=== PATIENT | female | born 1980 | race Caucasian/White ===

== ENCOUNTER → 2017-11-02 | Day surgery (SDC) | payer OTHER ==
[~2017-11-02] VITALS: Ht 170.2 cm; Wt 95.0 kg
[~2017-11-02] MED LIST: ACETAMINOPHEN 325 MG TABLET PO PRN; ALBU8.5H5 INH; ALLERGY PILL PO; AMOX1TAB64 PO; AMOX875T PO; BIRTH CONTROL PILL PO; BIRTH CONTROL PO; CIPR500T87 PO; DEXAMETHASONE 4 MG/ML, 1ML ONE; DICY20TA3 PO; DULO60CA7 PO; EPINEPHRINE TOPICAL SOLN 1 MG/ML, 30ML ONE; FENTANYL PF 100 MCG/2ML IV PRN; FENTANYL PF 250 MCG/5ML ONE; HYDROcodone/APAP 7.5-325MG/15ML UDC PO PRN; HYDROmorphone 1 MG/ML, 1ML IV PRN; INHALER INH; KETAMINE 10 MG/ML, 20ML ONE; LACTATED RINGERS 1,000 ML IV SCH; LEVO1TAB5 PO; LIDOCAINE-MPF 2% ,5ML ONE; LORazepam 2 MG/ML, 1ML IVPush PRN; MEPERIDINE/PF 25MG/0.5ML IVPush PRN; MEPERIDINE/PF 50 MG/ML ONE; METR500T PO; MIDAZOLAM 1 MG/ML, 2ML ONE; ONDANSETRON 2MG/ML, 2ML IVPush PRN; ONDANSETRON 2MG/ML, 2ML ONE; OXYC-302 PO; OXYcodone 5 MG/5 ML ORAL.SOL UDC PO PRN; PLEASE ENTER HEIGHT AND WEIGHT MC SCH; PRED20TA PO; PROMETHAZINE 25 MG/ML, 1ML IV PRN; PROPOFOL 10 MG/ML, 20ML ONE; PROPOFOL 100 ML ONE; RIVA20TA PO; VANC125C11 PO
[2017-11-02 11:14] VITALS: BP 112/83
[2017-11-02 11:34] LABS: HCG UR SG 1.016 (1.003-1.030)
[2017-11-02] MEDS: TRIAMCINOLONE ACETONIDE 40 MG/ML, 1ML ONE ×2 (13:33→13:36)
== END | disposition home or self-care (01) ==
LOC: OUT 10:36
PROVIDERS: ATTEND Otolaryngology
DX: J39.8 Other specified diseases of upper respiratory tract (principal); Z86.718 Personal history of other venous thrombosis and embolism; Z79.02 Long term (current) use of antithrombotics/antiplatelets
CPT/HCPCS: 31529; 81025; C1726; J1100; J2175; J2250; J2405; J2704; J3010; J3301; J3490

== ENCOUNTER → 2018-05-19 | Outpatient (CLI) | payer OTHER ==
[~2018-05-19] MED LIST changes: -ACETAMINOPHEN 325 MG TABLET PO PRN; -DEXAMETHASONE 4 MG/ML, 1ML ONE; +DULO30CA2 PO; -EPINEPHRINE TOPICAL SOLN 1 MG/ML, 30ML ONE; -FENTANYL PF 100 MCG/2ML IV PRN; -FENTANYL PF 250 MCG/5ML ONE; -HYDROcodone/APAP 7.5-325MG/15ML UDC PO PRN; -HYDROmorphone 1 MG/ML, 1ML IV PRN; -KETAMINE 10 MG/ML, 20ML ONE; -LACTATED RINGERS 1,000 ML IV SCH; -LIDOCAINE-MPF 2% ,5ML ONE; -LORazepam 2 MG/ML, 1ML IVPush PRN; -MEPERIDINE/PF 25MG/0.5ML IVPush PRN; -MEPERIDINE/PF 50 MG/ML ONE; -MIDAZOLAM 1 MG/ML, 2ML ONE; -ONDANSETRON 2MG/ML, 2ML IVPush PRN; -ONDANSETRON 2MG/ML, 2ML ONE; -OXYcodone 5 MG/5 ML ORAL.SOL UDC PO PRN; -PLEASE ENTER HEIGHT AND WEIGHT MC SCH; -PROMETHAZINE 25 MG/ML, 1ML IV PRN; -PROPOFOL 10 MG/ML, 20ML ONE; -PROPOFOL 100 ML ONE
== END ==
LOC: STAR 08:29
PROVIDERS: ATTEND Otolaryngology
DX: Z02.9 Encounter for administrative examinations, unspecified (principal)

== ENCOUNTER 2018-05-24 11:40 | Inpatient (IN) | payer OTHER ==
[2018-05-19 08:50] VITALS: BP 120/88
[~2018-05-24] VITALS: Ht 170.2 cm; Wt 95.0 kg
[2018-05-24] MEDS ORDERED: LACTATED RINGERS 1,000 ML IV SCH (12:11)
[2018-05-24] MEDS ORDERED: ACETAMINOPHEN 500 MG TABLET PO ONE (12:30)
[2018-05-24] MEDS ORDERED: GABAPENTIN 300 MG CAPSULE PO ONE (12:30)
[2018-05-24] MEDS ORDERED: GABAPENTIN 300 MG CAPSULE ONE (12:43)
[2018-05-24] MEDS ORDERED: ACETAMINOPHEN 500 MG TABLET ONE (12:44)
[2018-05-24 12:51] LABS: HCG UR SG 1.027 (1.003-1.030)
[2018-05-24] MEDS ORDERED: EPINEPHRINE 1 MG/ML, 1ML ONE (13:01)
[2018-05-24] MEDS ORDERED: LIDOCAINE/PF 0.5% ,50ML ONE (13:01)
[2018-05-24] MEDS ORDERED: MICROFIBRILLAR COLLAGEN 70X35X1 DRESSING ONE (13:01)
[2018-05-24] MEDS ORDERED: EPINEPHRINE TOPICAL SOLN 1 MG/ML, 30ML ONE (13:09)
[2018-05-24] MEDS ORDERED: THROMBIN 5,000 UNIT VIAL TP ONE (13:09)
[2018-05-24] MEDS ORDERED: MIDAZOLAM 1 MG/ML, 2ML ONE (13:43)
[2018-05-24] MEDS ORDERED: PROPOFOL 50 ML ONE (13:45)
[2018-05-24] MEDS ORDERED: FENTANYL PF 250 MCG/5ML ONE ×2 (13:45→14:44)
[2018-05-24] MEDS ORDERED: ROCURONIUM 10 MG/ML,10ML ONE (14:18)
[2018-05-24] MEDS ORDERED: SUCCINYLCHOLINE 20 MG/ML, 10ML ONE (14:18)
[2018-05-24] MEDS ORDERED: CEFAZOLIN 1,000 MG ONE (14:18)
[2018-05-24] MEDS ORDERED: ONDANSETRON 2MG/ML, 2ML ONE (14:42)
[2018-05-24] MEDS ORDERED: PROPOFOL 10 MG/ML, 20ML ONE ×2 (14:42)
[2018-05-24] MEDS ORDERED: DEXAMETHASONE 4 MG/ML, 1ML ONE ×2 (14:42)
[2018-05-24] MEDS ORDERED: OXYcodone 5 MG/5 ML ORAL.SOL UDC PO PRN (17:00)
[2018-05-24] MEDS ORDERED: ONDANSETRON ODT 8 MG PO PRN (17:00)
[2018-05-24] MEDS ORDERED: EPHEDRINE 50 MG/ML, 1ML IM PRN (17:00)
[2018-05-24] MEDS ORDERED: PROCHLORPERAZINE 5 MG/ML, 2ML IV PRN (17:00)
[2018-05-24] MEDS ORDERED: PROMETHAZINE 25 MG/ML, 1ML IV PRN (17:00)
[2018-05-24] MEDS ORDERED: PROMETHAZINE 12.5 MG SUPP PR PRN (17:00)
[2018-05-24] MEDS ORDERED: DIPHENHYDRAMINE 50 MG/ML, 1ML IVPush PRN (17:00)
[2018-05-24] MEDS ORDERED: FENTANYL PF 100 MCG/2ML IV PRN (17:00)
[2018-05-24] MEDS ORDERED: MIDAZOLAM 1 MG/ML, 2ML IV PRN (17:00)
[2018-05-24] MEDS ORDERED: ACETAMINOPHEN 325 MG TABLET PO PRN (17:00)
[2018-05-24] MEDS ORDERED: MORPHINE SULFATE 4 MG/ML, 1ML IVPush PRN ×2 (17:00→19:00)
[2018-05-24] MEDS ORDERED: MEPERIDINE/PF 25MG/0.5ML IVPush PRN (17:00)
[2018-05-24] MEDS ORDERED: MORPHINE SULFATE 4 MG/ML, 1ML ONE (17:21)
[2018-05-24] MEDS ORDERED: FENTANYL PF 100 MCG/2ML ONE (17:36)
[2018-05-24] MEDS ORDERED: OXYcodone 5 MG/5 ML ORAL.SOL UDC ONE (17:36)
[2018-05-24 18:20] VITALS: BP 130/70
[2018-05-24] MEDS ORDERED: ONDANSETRON 2MG/ML, 2ML IVPush PRN (19:00)
[2018-05-24] MEDS ORDERED: ACETAMINOPHEN 500 MG TABLET PO PRN (19:00)
[2018-05-24] MEDS: LACTATED RINGERS 1,000 ML IV SCH (22:01)
[2018-05-24] MEDS: OXYcodone IR 5MG TABLET PO PRN (23:16)
[2018-05-24 23:32] VITALS: BP 137/80
[2018-05-25 03:06] VITALS: BP 121/73
[2018-05-25] MEDS: OXYcodone IR 5MG TABLET PO PRN (03:35)
[2018-05-25 08:14] VITALS: BP 122/72
[2018-05-25] MEDS: LACTATED RINGERS 1,000 ML IV SCH (08:57)
[2018-05-25] MEDS: CEFAZOLIN PMX 2GM/50ML 50 ML IVPB SCH ×2 (08:57)
[2018-05-25] MEDS ORDERED: OXYC-302 PO (12:03)
== END 2018-05-25 12:50 | disposition home or self-care (01) | DRG 627 ==
LOC: OUT 11:40 → 4NOR 18:13 → OUT 18:17 → DCLOUNGE 05-25 12:20
PROVIDERS: ADMIT Otolaryngology; ATTEND Otolaryngology
PROC: 4A11X4G Monitoring of Peripheral Nervous Electrical Activity, Intraoperative, External Approach (ICD-10-PCS; 2018-05-24)
PROC: 0GTH0ZZ Resection of Right Thyroid Gland Lobe, Open Approach (ICD-10-PCS; principal; 2018-05-24 13:30)
PROC: 0GBJ0ZZ Excision of Thyroid Gland Isthmus, Open Approach (ICD-10-PCS; 2018-05-24 13:30)
PROC: 0BJ18ZZ Inspection of Trachea, Via Natural or Artificial Opening Endoscopic (ICD-10-PCS; 2018-05-24 13:30)
DX: E04.1 Nontoxic single thyroid nodule (principal); J39.8 Other specified diseases of upper respiratory tract
CPT/HCPCS: 81025; 88307; 88331; C1726; C1729; J0171; J0690; J1100; J2001; J2250; J2405; J2704; J3010; C1760; J0330; J7120

== ENCOUNTER → 2018-08-22 | Outpatient (CLI) | payer OTHER | END | disposition home or self-care (01) | LOC: CFH 15:42 | PROVIDERS: ATTEND Obstetrics & Gynecology Gynecology | DX: R10.2 Pelvic and perineal pain (principal) | CPT/HCPCS: 76856 ==

== ENCOUNTER 2019-05-02 09:12 | Inpatient (IN) | payer OTHER ==
[~2019-05-02] VITALS: Ht 170.2 cm; Wt 95.0 kg
[2019-05-02 09:43] VITALS: BP 117/77
[2019-05-02] MEDS ORDERED: PROMETHAZINE 25 MG/ML, 1ML IM PRN (11:00)
[2019-05-02] MEDS ORDERED: ONDANSETRON 2MG/ML, 2ML IVPush PRN (11:00)
[2019-05-02] MEDS ORDERED: hydrALAzine 20 MG/ML, 1ML IVPush PRN (11:00)
[2019-05-02] MEDS ORDERED: LABETALOL 5 MG/ML SYRINGE IVPush PRN (11:00)
[2019-05-02] MEDS ORDERED: OXYcodone IR 5MG TABLET PO PRN (11:00)
[2019-05-02] MEDS ORDERED: NITROGLYCERIN 0.4 MG BOTTLE (25 TABS) SL PRN (11:00)
[2019-05-02] MEDS ORDERED: ASPIRIN 325 MG TABLET EC ONE (11:08)
[2019-05-02] MEDS: HEPARIN 5,000 UNITS/ML, 1ML SQ SCH ×2 (11:15→19:57)
[2019-05-02] MEDS: LACTATED RINGERS 1,000 ML IV SCH ×4 (11:16→19:58)
[2019-05-02] MEDS: morphine SULFATE 10 MG/ML, 1ML IVPush PRN ×2 (11:28→16:03)
[2019-05-02 11:58] LABS: TROPONIN I < 0.015 ng/mL (0.000-0.045)
[2019-05-02 12:53] LABS: HCG UR SG 1.037 (1.003-1.030)
[2019-05-02] MEDS: HYDROmorphone 2 MG/ML, 1ML IV PRN ×2 (13:03→19:59)
[2019-05-02 13:29] VITALS: BP 108/68
[2019-05-02 14:59] LABS: ALANINE AMINOTRANSFERASE 34 U/L (12-78); ALBUMIN 3.3 g/dL (3.4-5.0); ANION GAP 3 mmol/L (5-15); CALCIUM 8.5 mg/dL (8.5-10.1); CHLORIDE 108 mmol/L (98-107); CREATININE 0.76 mg/dL (0.55-1.02)
[2019-05-02 15:01] LABS: ALKALINE PHOSPHATASE 82 U/L (45-117); BILIRUBIN,TOTAL 0.8 mg/dL (0.2-1.0)
[2019-05-02] MEDS ORDERED: OMNIPAQUE 350 MG/ML, 100ML BOTTLE ONE (17:01)
[2019-05-02 17:32] LABS: TROPONIN I < 0.015 ng/mL (0.000-0.045)
[2019-05-02 18:51] VITALS: BP 119/82
[2019-05-02 20:38] LABS: HCG UR SG > 1.045 (1.003-1.030)
[2019-05-02 22:53] LABS: TROPONIN I < 0.015 ng/mL (0.000-0.045)
[2019-05-03 02:37] VITALS: BP 110/77
[2019-05-03] MEDS: HYDROmorphone 2 MG/ML, 1ML IV PRN ×2 (03:01→08:05)
[2019-05-03] MEDS: HEPARIN 5,000 UNITS/ML, 1ML SQ SCH (04:22)
[2019-05-03] MEDS: LACTATED RINGERS 1,000 ML IV SCH ×3 (04:23→20:18)
[2019-05-03] MEDS ORDERED: ASPIRIN 325 MG TABLET EC PO SCH (06:00)
[2019-05-03 06:07] LABS: BASOPHILS # (AUTO) 0.02 x10^3/uL (0-0.1); BASOPHILS % (AUTO) 0 % (0-1); EOSINOPHILS # (AUTO) 0.02 x10^3/uL (0-0.4); EOSINOPHILS % (AUTO) 0 % (1-7); LYMPHOCYTES # (AUTO) 1.36 x10^3/uL (1-3.4); LYMPHOCYTES % (AUTO) 14 % (22-44); MD NO; MEAN CORPUSCULAR HGB CONC 32.7 g/dL (32.4-35.8); MEAN PLATELET VOLUME 7.4 fL (7.4-10.4); MONOCYTES # (AUTO) 0.65 x10^3/uL (0.2-0.8); MONOCYTES % (AUTO) 7 % (2-9); NEUTROPHILS # (AUTO) 7.93 x10^3/uL (1.8-6.8); NEUTROPHILS % (AUTO) 80 % (42-75); PLATELET COUNT 187 x10^3/uL (130-400); RED BLOOD COUNT 3.89 x10^6/uL (3.82-5.3); RED CELL DISTRIBUTION WIDTH 14.9 % (9.6-15.2)
[2019-05-03 06:31] LABS: ALANINE AMINOTRANSFERASE 43 U/L (12-78); ALBUMIN 2.9 g/dL (3.4-5.0); CALCIUM 8.2 mg/dL (8.5-10.1); CHOLESTEROL, TOTAL 125 mg/dL (140-239); CREATININE 0.57 mg/dL (0.55-1.02); TRIGLYCERIDES 76 mg/dL (50-200); VLDL CHOLESTEROL 15 mg/dL (0-25)
[2019-05-03 06:53] VITALS: BP 111/77
[2019-05-03 06:55] LABS: ANION GAP 4 mmol/L (5-15); CHLORIDE 105 mmol/L (98-107)
[2019-05-03 07:21] LABS: ALKALINE PHOSPHATASE 84 U/L (45-117); BILIRUBIN,TOTAL 0.8 mg/dL (0.2-1.0); CHOL/HDL RATIO 2.6; HDL CHOL % 39 % (28-40); HDL CHOLESTEROL (DIRECT) 49 mg/dL (40-60); LDL CHOLESTEROL,CALCULATED 61 mg/dL (54-169); LDL/HDL RATIO 1.2 (0.5-3.0)
[2019-05-03] MEDS: ACETAMINOPHEN 325 MG TABLET PO PRN (08:05)
[2019-05-03] MEDS: DULOXETINE 30 MG CAPSULE.DR PO SCH (08:05)
[2019-05-03] MEDS: DOCUSATE 100 MG CAPSULE PO SCH ×2 (09:32→20:17)
[2019-05-03] MEDS: ENOXAPARIN 40 MG/0.4 ML SQ SCH (12:48)
[2019-05-03 13:31] VITALS: BP 111/77
[2019-05-03] MEDS: MAGNESIUM HYDROXIDE 8%, 30ML UDC PO PRN (17:32)
[2019-05-03 18:42] VITALS: BP 105/74
[2019-05-04 01:14] VITALS: BP 114/78
[2019-05-04] MEDS: LACTATED RINGERS 1,000 ML IV SCH ×3 (03:54→20:06)
[2019-05-04] MEDS: ASPIRIN 81 MG TABLET EC PO SCH (06:26)
[2019-05-04 06:44] VITALS: BP 109/76
[2019-05-04] MEDS: DOCUSATE 100 MG CAPSULE PO SCH ×2 (08:30→20:06)
[2019-05-04] MEDS: DULOXETINE 30 MG CAPSULE.DR PO SCH (08:37)
[2019-05-04] MEDS: MAGNESIUM HYDROXIDE 8%, 30ML UDC PO PRN (08:37)
[2019-05-04] MEDS: ENOXAPARIN 40 MG/0.4 ML SQ SCH (12:24)
[2019-05-04 15:22] VITALS: BP 113/76
[2019-05-04] MEDS ORDERED: MAGNESIUM CITRATE 300ML ORAL SOL PO PRN ×2 (17:44→18:00)
[2019-05-04] MEDS ORDERED: BISACODYL 10 MG SUPP PR PRN (18:00)
[2019-05-04 19:58] VITALS: BP 114/76
[2019-05-05] MEDS: ACETAMINOPHEN 325 MG TABLET PO PRN (00:07)
[2019-05-05 00:46] VITALS: BP 101/66
[2019-05-05] MEDS: ASPIRIN 81 MG TABLET EC PO SCH (05:25)
[2019-05-05 06:10] LABS: ALANINE AMINOTRANSFERASE 29 U/L (12-78); ALBUMIN 2.8 g/dL (3.4-5.0); ANION GAP 4 mmol/L (5-15); CALCIUM 8.2 mg/dL (8.5-10.1); CHLORIDE 108 mmol/L (98-107)
[2019-05-05 06:13] LABS: ALKALINE PHOSPHATASE 82 U/L (45-117); BILIRUBIN,TOTAL 0.6 mg/dL (0.2-1.0); CREATININE 0.56 mg/dL (0.55-1.02); TOTAL PROTEIN 6.4 g/dL (6.4-8.2)
[2019-05-05 07:17] VITALS: BP 107/74
[2019-05-05] MEDS: DULOXETINE 30 MG CAPSULE.DR PO SCH (08:38)
[2019-05-05] MEDS: DOCUSATE 100 MG CAPSULE PO SCH (08:38)
[2019-05-05] MEDS ORDERED: DOCU-131 PO (09:53)
[2019-05-05] MEDS ORDERED: ACET325T26 PO (09:54)
== END 2019-05-05 11:12 | disposition home or self-care (01) | DRG 438 ==
LOC: 4NOR 09:12 → 4WST 13:15 → DCLOUNGE 05-05 11:02
PROVIDERS: ADMIT Internal Medicine; ATTEND Internal Medicine
DX: K85.20 Alcohol induced acute pancreatitis without necrosis or infection (principal); J96.01 Acute respiratory failure with hypoxia; E86.0 Dehydration; R07.89 Other chest pain; K59.00 Constipation, unspecified; Z82.49 Family history of ischemic heart disease and other diseases of the circulatory system; Z90.49 Acquired absence of other specified parts of digestive tract; Z86.718 Personal history of other venous thrombosis and embolism; Z86.711 Personal history of pulmonary embolism
CPT/HCPCS: 36415; 71275; 76700; 80053; 80061; 80307; 81025; 83735; 84484; 84702; 85025; 85379; 93005; G0378; J1170; J1644; J1650; Q9967; J2270; J7120